=== PATIENT | male | born 1995 | race Caucasian/White ===

== ENCOUNTER 2016-12-04 02:38 | Emergency (ER) | payer BC, OTHER ==
[~2016-12-04] VITALS: Ht 185.4 cm; Wt 110.0 kg
[2016-12-04 02:41] VITALS: TEMP 37.2; Ht 185.4 cm; Wt 110.0 kg
--- NOTE | 2016-12-04 03:00 | EMERGENCY ROOM VISIT NOTE ---
History Report prepared by Davy: Kalee Torue Under the Supervision of: Dr. Laura Jones M.D. First contact with patient: 02:38 Chief Complaint: ALCOHOL OVERDOSE Stated Complaint: ALCOHOL OVERDOSE Nursing Triage Summary: Pt was drinking, stumbled into [facility] [place] and had passed out on floor and vomited. 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 The patient was in [facility] when he vomited and passed out on the floor. He was brought to the ED by ambulance. He has vomited since arriving in the ED. He admits to drinking alcohol tonight. He states that he has been upset lately because of school. The history is limited due to the patient's intoxication. Source of History: EMS History Limited By: intoxication Onset: SANITATION ENGINEER Position: other (global) Quality: other (intoxication) Timing: other (episode) Associated Symptoms: + vomiting Review of Systems ROS is limited secondary to the patient's intoxication. Past Medical & Surgical Medical Problems: (1) No significant active problems Family History No pertinent history stated. Social History Smoking Status: Current Some Day Smoker Alcohol Use: occasionally Occupation Status: employed, [employer] student Current/Historical Medications No Active Prescriptions or Reported Meds Allergies Coded Allergies: No Known Allergies (Unverified , 12/04/16) Physical Exam Vital Signs Date Time Temp Pulse Resp B/P Pulse Ox O2 Delivery O2 Flow Rate FiO2 12/04/16 09:00 75 18 110/54 97 12/04/16 08:25 72 12/04/16 08:23 72 18 108/51 96 Room Air 12/04/16 06:38 73 14 94 12/04/16 06:33 70 14 94 12/04/16 06:30 112/54 12/04/16 06:28 72 14 94 12/04/16 06:23 71 14 94 12/04/16 06:18 70 14 94 12/04/16 06:13 69 14 94 12/04/16 06:09 80 12/04/16 06:08 71 13 94 12/04/16 06:03 71 13 94 12/04/16 06:00 114/50 12/04/16 05:58 70 16 94 5/12/17 05:53 66 17 94 12/04/16 05:48 87 22 95 12/04/16 05:43 87 15 95 12/04/16 05:38 70 15 94 12/04/16 05:33 69 14 94 12/04/16 05:30 99/47 12/04/16 05:28 68 14 94 12/04/16 05:23 70 15 94 12/04/16 05:18 70 15 94 12/04/16 05:13 71 15 95 12/04/16 05:08 69 14 95 12/04/16 05:03 67 13 94 12/04/16 05:00 109/48 12/04/16 04:58 90 17 95 12/04/16 04:53 69 14 94 12/04/16 04:48 70 15 94 12/04/16 04:43 68 14 94 12/04/16 04:38 68 14 94 12/04/16 04:33 69 13 94 12/04/16 04:30 105/48 12/04/16 04:28 71 14 94 12/04/16 04:23 69 14 94 12/04/16 04:18 70 13 94 12/04/16 04:13 73 14 93 12/04/16 04:08 83 17 94 12/04/16 04:03 76 17 94 12/04/16 04:00 94/52 12/04/16 03:58 74 15 93 12/04/16 03:53 74 20 93 12/04/16 03:48 74 17 93 12/04/16 03:43 74 17 93 12/04/16 03:38 74 15 93 12/04/16 03:33 74 17 93 12/04/16 03:30 108/51 12/04/16 03:28 74 16 93 12/04/16 03:23 74 17 93 12/04/16 03:18 73 17 93 12/04/16 03:13 74 19 93 12/04/16 03:08 74 17 93 12/04/16 03:03 75 17 93 12/04/16 03:00 107/65 12/04/16 02:58 76 18 93 12/04/16 02:53 72 18 93 12/04/16 02:48 88 27 94 12/04/16 02:48 93 12/04/16 02:45 112/77 12/04/16 02:41 37.2 95 18 112/77 94 Room Air Physical Exam Vital signs reviewed. General: Odor of EtOH in the breath, disheveled 21-year-old male. No signs of trauma. HEENT: Atraumatic. Mild scleral injection bilaterally, PERRLA, neck supple, dry mucous membranes. Cardiovascular: Regular rate and rhythm, no extra sounds. Pulmonary: Clear to auscultation bilaterally, normal work of breathing. Abdomen: Soft, nontender, nondistended, positive bowel sounds. Musculoskeletal: Some abrasions to his knees, no peripheral edema Skin: Warm, dry, no rash. Atraumatic. Neurologic: Patient is currently verbal. Medical Decision & Procedures Laboratory Results Test 12/04/16 03:01 Ethyl Alcohol mg/dL 210.0 mg/dl (0-3) Laboratory results per my review. ED Course 0238: Past medical records reviewed. The patient was evaluated in room B12B. A complete history and physical examination was performed. 0604: I reassessed the patient at this time. He is still sleeping but arousable. Medical Decision The differential diagnosis of the patient's presentation includes alcohol ingestion, illicit drug use, trauma, and dehydration. This patient was evaluated and appeared to be in no significant distress. The patient is markedly intoxicated. There is some abrasion noted to the bilateral knees. There is no sign of head injury. The patient is able to answer simple questions. His speech is slurred. Laboratory work reveals a blood alcohol of 210. The patient also admits to using marijuana today. He denies any head injury. The patient was observed with aspiration precautions maintained. He will be observed in the emergency department until he reached a more sober state. The case is signed out to Dr. Corbett at the change of shift, pending head CT as the patient was not awakening as easily/quickly as anticipated. Impression Primary Impression: Alcoholic intoxication Scribe Attestation The scribe's documentation has been prepared under my direction and personally reviewed by me in its entirety. I confirm that the note above accurately reflects all work, treatment, procedures, and medical decision making performed by me. Departure Information Prescriptions No Active Prescriptions or Reported Meds Patient Instructions My [facility] Problem Qualifiers Primary Impression: Alcoholic intoxication Complication of substance-induced condition: with delirium Qualified Codes: F10.921 - Alcohol use, unspecified with intoxication delirium
--- NOTE | 2016-12-04 07:51 | DIAGNOSTIC IMAGING REPORT ---
HEAD CT NONCONTRAST CT DOSE: 765.09 mGycm HISTORY: Trauma AMS, ETOH, fall TECHNIQUE: Multiaxial CT images of the head were performed without the use of intravenous contrast. Comparison: None. Findings: The paranasal sinuses and mastoid air cells are clear. The calvarium and skull base are intact. The ventricles and sulci are within normal limits. There is no mass, hematoma, midline shift, or acute infarct. Impression: No acute intracranial abnormality. Electronically signed by: Andriy Colin M.D. 12/04/2016 7:50 AM Dictated Date/Time: 12/04/2016 7:49 AM
[2016-12-04 09:00] VITALS: BP 110/54; PULSE 75; O2SAT 97
--- NOTE | 2016-12-04 09:10 | EMERGENCY ROOM VISIT NOTE ---
ED Visit Note First contact with patient: 07:26 I assumed care at the change of shift. The patient was undergoing a brain CT for trauma or injury. The brain CT has returned without evidence for acute bleed or acute trauma. The patient is currently doing well, he is waking up as his alcohol is clearing. He is stable for discharge home. He was told to avoid alcohol in excess.
== END 2016-12-04 09:02 | disposition home or self-care (01) ==
LOC: C.EDB 02:39
DX: F10.129 Alcohol abuse with intoxication, unspecified (principal); F17.210 Nicotine dependence, cigarettes, uncomplicated; S80.211A Abrasion, right knee, initial encounter; S80.212A Abrasion, left knee, initial encounter; Y90.7 Blood alcohol level of 200-239 mg/100 ml; F12.10 Cannabis abuse, uncomplicated